=== PATIENT | male | born 1985 | race Caucasian/White ===

== ENCOUNTER 2018-08-25 21:41 | Emergency (ER) | payer BC ==
[2018-08-25] MEDS ORDERED: ASPIRIN 81 MG PO STA (23:03)
--- NOTE | 2018-08-25 23:58 | XR ---
EXAM: XR Chest, 2 Views CLINICAL HISTORY: ITS.REASON XR Reason: Chest Pain TECHNIQUE: Frontal and lateral views of the chest. COMPARISON: 06/29/2018 chest x-ray FINDINGS: Lungs: No consolidation or mass. Pleural space: No effusion. Heart: No cardiomegaly. Mediastinum: Unremarkable. Bones/joints: No acute findings. IMPRESSION: No acute cardiopulmonary process.
[2018-08-26 00:13] LABS: Basophils % (A) 0 %; Eosinophils # (A) 0.2 k/uL (0-0.7); Eosinophils % (A) 2 %; HCT 45.6 % (39.0-53.0); HGB 15.8 gm/dL (13.0-17.5); Lymphocytes # (A) 3.7 k/uL (1.0-4.8); Lymphocytes % (A) 49 %; MCH 29.5 pg (25.0-35.0); MCHC 34.6 g/dL (31.0-37.0); MCV 85.3 fL (80.0-100.0); Mean Platelet Volume 12.7; Monocytes # (A) 0.5 k/uL (0-1.0); Monocytes % (A) 6 %; Neutrophils % (A) 41 %; Platelet Count 183 k/uL (150-450); RBC 5.34 m/uL (4.30-5.90); RDW 14.7 % (11.5-15.5); WBC 7.5 k/uL (3.8-10.6)
[2018-08-26 00:36] LABS: ALT 42 U/L (21-72); AST 29 U/L (17-59); Albumin 4.6 g/dL (3.5-5.0); Alkaline Phosphatase 92 U/L (38-126); Anion Gap 8 mmol/L; Blood Urea Nitrogen 12 mg/dL (9-20); Calcium 9.9 mg/dL (8.4-10.2); Carbon Dioxide 28 mmol/L (22-30); Chloride 103 mmol/L (98-107); Glucose 86 mg/dL (74-99); Potassium 4.4 mmol/L (3.5-5.1); Sodium 139 mmol/L (137-145); Total Bilirubin 0.6 mg/dL (0.2-1.3); Total Protein 7.7 g/dL (6.3-8.2)
--- NOTE | 2018-08-26 00:46 | ED ---
Chest Pain HPI - General Chief Complaint: Chest Pain Stated Complaint: chest pain, SOB Time Seen by Provider: 08/25/18 23:03 Source: patient Mode of arrival: ambulatory Limitations: no limitations - History of Present Illness Initial Comments: Iliana is a previously healthy 33y male who presents to the ER today for evaluation of chest pain. Patient reports that he has been experiencing intermittent chest pain that he has not had evaluated. He reports that earlier today he experienced some stabbing chest pain that radiated from his left lateral sternum to his back. pain is worse with palpation but occasionally feels better if he holds firm constant pressure. 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 He denies any exertional symptoms he denies any recent changes workout or any heavy lifting. The patient denies associated fevers, chills, shortness of breath, palpitations or vomiting. He has no history of early cardiac disease in the family and has no personal history of any cardiac disease, hypertension, hyperlipidemia, diabetes or smoking. - Related Data Home Medications Medication Instructions Recorded Confirmed Multivitamins, Thera [Multivitamin 1 tab PO DAILY 08/25/18 08/25/18 (formulary)] Allergies Allergy/AdvReac Type Severity Reaction Status Date / Time No Known Allergies Allergy Verified 08/25/18 23:20 Review of Systems ROS Statement: Those systems with pertinent positive or pertinent negative responses have been documented in the HPI. ROS Other: All systems not noted in ROS Statement are negative. EKG Findings - EKG Comments: EKG Findings:: EKG was obtained due to complaint of chest pain. EKG obtained at 2221, rate of 64 rhythm is sinus there is normal axis, there are normal in tervals, MN 126, QRS 86, QTC 406 there are no acute ST elevations or depressions no evidence of acute ischemia or infarction or arrhythmia. Past Medical History Past Medical History: No Reported History History of Any Multi-Drug Resistant Organisms: None Reported Past Surgical History: Orthopedic Surgery Past Psychological History: No Psychological Hx Reported Smoking Status: Never smoker Past Alcohol Use History: Occasional Past Drug Use History: None Reported General Exam - General Exam Comments Initial Comments: Physical Exam GENERAL: Patient is well-developed and well-nourished. Patient is nontoxic and well- hydrated and is in no distress. HENT: Normocephalic, Atraumatic. EYES: PERRL, EOMI PULMONARY: Unlabored respirations. No audible rales rhonchi or wheezing was noted. CARDIOVASCULAR: There is a regular rate and rhythm without any murmurs gallops or rubs. ABDOMEN: Soft and nontender with normal bowel sounds. SKIN: Skin is clear with no lesions or rashes and otherwise unremarkable. : Deferred NEUROLOGIC: Patient is alert and oriented x3. Moving all extremities spontaneously MUSCULOSKELETAL: Normal extremities with adequate strength and full range of motion. No lower extremity swelling or edema. No calf tenderness. PSYCHIATRIC: Normal psychiatric evaluation. Limitations: no limitations Limitations: no limitations Course Vital Signs 08/25/18 08/26/18 22:51 01:55 Temperature 98.1 F 97.0 F L Pulse Rate 62 56 L Respiratory 20 16 Rate Blood Pressure 133/89 128/88 O2 Sat by Pulse 99 99 Oximetry [facility] was seen and evaluated history was obtained from the patient Is a previously healthy 33-year-old gentleman presenting with chest pain which seems to be musculoskeletal in nature. Pain is worse with certain palpation but seems to feel better with firm pressure on the rib. Heart score 0 PERC and Wells negative EKG non-ischemic CXR unrmarkable Labs are unremarkable except patient was reevaluated he was updated on findings expresses relief. I do believe that his discomfort is musculoskeletal in nature likely related to either costochondritis or a displaced rib. I advised the patient to take anti-inflammatories continued gentle movement without any heavy lifting and follow up with his primary care physician. Patient was advised to return to the emergency department if he has any significant change worsening or development of any new or concerning symptoms. All questions pertaining care were answered return parameters were discussed the patient was discharged home in stable condition - Wells Criteria Clinical Symptoms of DVT: (0) No No Alternative Diagnosis: (0) No Immobilization of Surgery in Previous 4 Weeks: (0) No Previous DVT/PE: (0) No Hemoptysis: (0) No Malignancy: (0) No - PERC Rule Heart Rate < 100: (0) No g: (0) No No Prior History pf DVT/PE: (0) No No Recent Trauma or Surgery: (0) No Hemoptysis: (0) No No Exogenous Estrogen: (0) No No Clinical Signs Suggesting DVT: (0) No - MK Score Age > 65: (0) No 3 or more CAD Risk Factors: (0) No Known CAD with more than 50% Stenosis: (0) No Elevated Cardiac Markers: (0) No ST Deviation Greater than 0.5mm: (0) No Disposition Clinical Impression: Atypical chest pain, Chest wall syndrome Disposition: HOME SELF-CARE Condition: Stable Instructions (If sedation given, give patient instructions): Chest Pain (ED), Costochondritis (ED) Is patient prescribed a controlled substance at d/c from ED?: No Referrals: None,Stated [Primary Care Provider] - 1-2 days Hasmukh Elise MD [STAFF PHYSICIAN] - 1-2 days
[2018-08-26 02:00] VITALS: BP 128/88; PULSE 56; RESP 16; TEMP 97
== END 2018-08-26 02:02 | disposition home or self-care (01) ==
LOC: EC 21:41
DX: R07.1 Chest pain on breathing (principal); R07.89 Other chest pain
CPT/HCPCS: 36415; 71046; 80053; 84484; 85025; 93005; 99285

== ENCOUNTER 2022-02-07 05:42 | Emergency (ER) | payer BC ==
[2022-02-07 05:51] VITALS: BP 132/90; PULSE 110; RESP 16; TEMP 97.8
--- NOTE | 2022-02-07 07:39 | ED ---
General Adult HPI - General Chief complaint: Skin/Abscess/Foreign Body Stated complaint: hemroids Time Seen by Provider: 02/07/22 07:16 Source: patient, RN notes reviewed, old records reviewed Mode of arrival: ambulatory Limitations: no limitations - History of Present Illness Initial comments: 36-year-old male presenting with suspected hemorrhoids. Patient has had rectal pain for the past one week. He was seen at outside hospital and reports that they thought he may have an internal infection and perform CT imaging which she reports as negative. He is currently on Augmentin. He states that when he has a bowel movement he is able to visualize multiple internal hemorrhoids which protrude and are irritated and painful. Denies significant bleeding. He has been taking Advil as well as stool softeners and plenty of fluids. He states he had a colonoscopy 2 years ago which he reports is normal. - Related Data Home Medications Medication Instructions Recorded Confirmed Multivitamins, Thera [Multivitamin 1 tab PO DAILY 08/25/18 08/25/18 (formulary)] Previous Rx's Medication Instructions Recorded Ibuprofen [Motrin] 600 mg PO Q8HR PRN #24 tab 02/07/22 traMADol HCL 50 mg PO Q6H 3 Days #12 tab 02/07/22 Allergies Allergy/AdvReac Type Severity Reaction Status Date / Time No Known Allergies Allergy Verified 08/25/18 23:20 Review of Systems ROS Statement: Those systems with pertinent positive or pertinent negative responses have been documented in the HPI. ROS Other: All systems not noted in ROS Statement are negative. Past Medical History Past Medical History: No Reported History History of Any Multi-Drug Resistant Organisms: None Reported Past Surgical History: Orthopedic Surgery Past Psychological History: No Psychological Hx Reported Past Alcohol Use History: Occasional Past Drug Use History: None Reported General Exam Limitations: no limitations General appearance: alert, in no apparent distress Head exam: Present: atraumatic, normocephalic Eye exam: Present: normal appearance, PERRL ENT exam: Present: normal exam Neck exam: Present: normal inspection Respiratory exam: Present: normal lung sounds bilaterally. Absent: respiratory distress, wheezes Cardiovascular Exam: Present: regular rate, normal rhythm GI/Abdominal exam: Present: soft. Absent: distended, tenderness, guarding, rebound Rectal exam: Present: normal inspection, normal rectal tone. Absent: black stool, bloody stool, hemorrhoids, mass Course Vital Signs 02/07/22 05:46 Temperature 97.8 F Pulse Rate 110 H Respiratory 16 Rate Blood Pressure 132/90 O2 Sat by Pulse 96 Oximetry Medical Decision Making - Medical Decision Making 36-year-old male with suspected internal hemorrhoids. External exam is unremarkable no protruding or bleeding hemorrhoids, no external hemorrhoids. The patient should continue stool softeners, he should increase the fiber in his diet and will prescribe pain medication for symptomatically relief and he should use topical hemorrhoid creams or ointments. He should follow-up with gastroenterology. Disposition Clinical Impression: Rectal pain Disposition: HOME SELF-CARE Condition: Fair Instructions (If sedation given, give patient instructions): Hemorrhoids (DC), Rectal Pain (ED) Additional Instructions: Please increase fiber in your diet, use sitz bath and [id number] hemorrhoidal creams. Please drink plenty of water. Prescriptions: Ibuprofen [Motrin] 600 mg PO Q8HR PRN #24 tab PRN Reason: Pain traMADol HCL 50 mg PO Q6H 3 Days #12 tab Is patient prescribed a controlled substance at d/c from ED?: No Referrals: Nonstaff,Physician [Primary Care Provider] - 1-2 days Elvira Hogue MD [STAFF PHYSICIAN] - 1-2 days Time of Disposition: 07:36
== END 2022-02-07 08:00 | disposition home or self-care (01) ==
LOC: EC 05:42
DX: K62.89 Other specified diseases of anus and rectum (principal)
CPT/HCPCS: 99283

== ENCOUNTER 2022-02-13 04:35 | Emergency (ER) | payer BC ==
[2022-02-13 04:45] VITALS: TEMP 98.7
[2022-02-13] MEDS ORDERED: chlorproMAZINE 25 MG/ML 1 ML AMP IV STA (05:13)
[2022-02-13] MEDS ORDERED: ONDANSETRON ODT 4 MG TAB PO STA (05:13)
[2022-02-13] MEDS ORDERED: chlorproMAZINE 25 MG in SODIUM CHLORIDE 0.9% 50 ML IV SCH (05:30)
[2022-02-13 06:06] LABS: Basophils # (A) 0.1 k/uL (0-0.2); Basophils % (A) 0 %; Eosinophils % (A) 0 %; HCT 39.2 % (39.0-53.0); Lymphocytes # (A) 2.1 k/uL (1.0-4.8); Lymphocytes % (A) 13 %; MCH 29.4 pg (25.0-35.0); MCHC 33.1 g/dL (31.0-37.0); MCV 88.9 fL (80.0-100.0); Mean Platelet Volume 9.6; Monocytes % (A) 6 %; Neutrophils # (A) 12.1 k/uL (1.3-7.7); Neutrophils % (A) 79 %; Platelet Count 309 k/uL (150-450); RBC 4.41 m/uL (4.30-5.90); RDW 12.7 % (11.5-15.5); WBC 15.4 k/uL (3.8-10.6)
[2022-02-13 06:29] VITALS: BP 112/80; PULSE 100; RESP 16
--- NOTE | 2022-02-13 06:58 | ED ---
General Adult HPI - General Chief complaint: ENT Stated complaint: vomiting blood Time Seen by Provider: 02/13/22 04:50 Source: patient, EMS Mode of arrival: EMS Limitations: no limitations - History of Present Illness Initial comments: This patient is a 36-year-old man who presents to have evaluation after he had coughed and then started vomiting some blood. Patient had tonsillectomy through [facility]. He had been doing well postoperatively. The patient states that he caught, and spit up a blood clot and then after that noticed there was significant bright red blood that was not stopping. Patient denies symptoms of anemia, no chest pain, dyspnea, diaphoresis, palpitations or syncope. Patient notes that since leaving home the reading has slowed area -: hour(s) - Related Data Home Medications Medication Instructions Recorded Confirmed Multivitamins, Thera [Multivitamin 1 tab PO DAILY 08/25/18 08/25/18 (formulary)] Previous Rx's Medication Instructions Recorded Ibuprofen [Motrin] 600 mg PO Q8HR PRN #24 tab 02/07/22 Lidocaine [Lidocaine Rectal Cream 1 applic TOPICAL TID #30 gram 02/07/22 5%] traMADol HCl [Ultram] 50 mg PO Q6HR PRN 3 Days #12 tab 02/07/22 Allergies Allergy/AdvReac Type Severity Reaction Status Date / Time No Known Allergies Allergy Verified 02/13/22 04:45 Review of Systems ROS Statement: Those systems with pertinent positive or pertinent negative responses have been documented in the HPI. ROS Other: All systems not noted in ROS Statement are negative. Constitutional: Denies: fever, chills ENT: Reports: throat pain Respiratory: Denies: cough, dyspnea Cardiovascular: Denies: chest pain, palpitations, syncope Gastrointestinal: Denies: abdominal pain, vomiting, diarrhea Genitourinary: Denies: dysuria Musculoskeletal: Denies: back pain Skin: Denies: rash Neurological: Denies: headache Hematological/Lymphatic: Denies: easy bleeding Past Medical History Past Medical History: No Reported History History of Any Multi-Drug Resistant Organisms: None Reported Past Surgical History: Adenoidectomy, Orthopedic Surgery, Tonsillectomy Past Psychological History: No Psychological Hx Reported Smoking Status: Never smoker Past Alcohol Use History: Occasional Past Drug Use History: None Reported General Exam Limitations: no limitations General appearance: alert, in no apparent distress Head exam: Present: atraumatic, normocephalic Eye exam: Present: normal appearance ENT exam: Present: other (There is granulation tissue forming at tonsillectomy site. No signs of infection.) Neck exam: Present: normal inspection, full ROM Respiratory exam: Present: normal lung sounds bilaterally. Absent: respiratory distress, wheezes, rales, rhonchi, stridor Cardiovascular Exam: Present: regular rate, normal rhythm, normal heart sounds. Absent: systolic murmur, diastolic murmur, rubs, gallop GI/Abdominal exam: Present: soft. Absent: distended, tenderness, guarding Extremities exam: Present: normal inspection, normal capillary refill Back exam: Present: normal inspection. Absent: CVA tenderness (R), CVA tenderness (L) Neurological exam: Present: alert Skin exam: Present: warm, dry, intact, normal color. Absent: rash Course Vital Signs 02/13/22 02/13/22 04:38 06:24 Temperature 98.7 F Pulse Rate 133 H 100 Respiratory 24 16 Rate Blood Pressure 133/87 112/80 O2 Sat by Pulse 95 97 Oximetry Medical Decision Making - Medical Decision Making Patient's 36-year-old man with some post tonsillectomy bleeding. The bleeding was self-limited. Patient observed in emergency department with no further bleeding. - Lab Data Result diagrams: 02/13/22 05:50 Lab Results 02/13/22 Range/Units 05:50 WBC 15.4 H (3.8-10.6) k/uL RBC 4.41 (4.30-5.90) m/uL Hgb 13.0 (13.0-17.5) gm/dL Hct 39.2 (39.0-53.0) % MCV 88.9 (80.0-100.0) fL MCH 29.4 (25.0-35.0) pg MCHC 33.1 (31.0-37.0) g/dL RDW 12.7 (11.5-15.5) % Plt Count 309 (150-450) k/uL MPV 9.6 Neutrophils % 79 % Lymphocytes % 13 % Monocytes % 6 % Eosinophils % 0 % Basophils % 0 % Neutrophils # 12.1 H (1.3-7.7) k/uL Lymphocytes # 2.1 (1.0-4.8) k/uL Monocytes # 1.0 (0-1.0) k/uL Eosinophils # 0.0 (0-0.7) k/uL Basophils # 0.1 (0-0.2) k/uL Disposition Clinical Impression: Post-op bleeding Disposition: HOME SELF-CARE Condition: Good Instructions (If sedation given, give patient instructions): *Surgery [facility] - ([facility]) Tonsillectomy/Adenoidectomy Post-Op Instructions Is patient prescribed a controlled substance at d/c from ED?: No Referrals: Antonio Martinez MD [Primary Care Provider] - 1-2 days
== END 2022-02-13 06:59 | disposition home or self-care (01) ==
LOC: EC 04:35
DX: J95.830 Postprocedural hemorrhage of a respiratory system organ or structure following a respiratory system procedure (principal)
CPT/HCPCS: 36415; 85025; 99283; 96374; J3230